=== PATIENT | female | born 1935 | race Caucasian/White ===

== ENCOUNTER 2017-07-30 08:07 | Inpatient (IN) ==
[2017-07-30] MEDS ORDERED: PANTOPRAZOLE 40 MG VIAL IV STA (08:25)
[2017-07-30] MEDS ORDERED: ONDANSETRON 4 MG/2 ML VIAL IV PRN ×2 (08:25→09:40)
[2017-07-30] MEDS ORDERED: SODIUM CHLORIDE 0.9% 1,000 ML IV STA (08:38)
[2017-07-30 08:51] LABS: Basophils # 0.1 10*3/uL (0.0-0.2); Basophils % 0.5 % (0.0-0.8); Eosinophils # 0.1 10*3/uL (0.0-0.87); Eosinophils % 0.6 % (0.00-10.9); Hematocrit 34.3 VOL% (35.7-47.0); Hemoglobin 10.6 GM/DL (12.0-16.0); Immature Granulocytes % 0.9 %; Immature Granulocytes Absolute 0.16 #; Lymphocytes # 1.8 10*3/uL (1.4-4.0); Mean Corpuscular HGB Conc 30.9 GM/DL (32-36); Mean Corpuscular Hemoglobin 24 PG (27-34); Mean Corpuscular Volume 76.4 FL (87-102); Mean Platelet Volume 10.8 FL (9.6-12.0); Monocytes # 1.3 10*3/uL (0.11-0.8); Neutrophils # 14.6 10*3/uL (1.4-7.4); Platelet Count 285 T/CUMM (130-400); Red Blood Count 4.49 MC/CUMM (3.8-5.5); Red Cell Distribution Width 18.6 % (9.3-17.3); White Blood Count 18.1 T/CUMM (4-12)
[2017-07-30] MEDS ORDERED: PANTOPRAZOLE 40 MG VIAL IV ONE (08:51)
[2017-07-30 09:02] LABS: INR 1.1; PT Patient Result 11.1 SECS; Partial Thromboplastin Time 26.6 SECS (0-40)
[2017-07-30 09:21] LABS: Alanine Aminotransferase 21 U/L (13-56); Albumin 2.9 G/DL (3.4-5.0); Alkaline Phosphatase 97 U/L (45-117); Aspartate Amino Transferase 7 U/L (0-37); Bilirubin,Total < 0.39 MG/DL (0.2-1.0); Blood Urea Nitrogen 49 MG/DL (7-18); Calcium 8.8 MG/DL (8.5-10.1); Glucose 146 MG/DL (74-106); Potassium 5.1 MMOL/L (3.5-5.1); Sodium 136 MMOL/L (136-145); Total Protein 7.7 G/DL (6.4-8.3)
[2017-07-30] MEDS ORDERED: guaiFENesin/DM ER 600-30 MG TABLET PO PRN (09:40)
[2017-07-30] MEDS ORDERED: diphenhydrAMINE CAP 25 MG CAPSULE PO PRN (09:40)
[2017-07-30] MEDS ORDERED: ACETAMINOPHEN 325 MG TABLET PO PRN ×2 (09:40)
[2017-07-30 10:04] LABS: Risk Ratio 3.7; VLDL CHOLESTEROL 39.2 MG/DL
[2017-07-30] MEDS: PANTOPRAZOLE 40 MG TABLET PO SCH ×2 (10:12→20:50)
[2017-07-30] MEDS ORDERED: INFLUENZA VIRUS VACCINE 0.5 ML SYRINGE IM ONE (11:25)
[2017-07-30] MEDS: SODIUM CHLORIDE 0.9% 1,000 ML IV SCH ×2 (11:42→19:45)
[2017-07-30 12:31] LABS: Hematocrit 31.1 VOL% (35.7-47.0); Hemoglobin 9.7 GM/DL (12.0-16.0)
[2017-07-30] MEDS ORDERED: GLUCAGON 1 MG VIAL IM PRN (13:57)
[2017-07-30] MEDS ORDERED: DEXTROSE 50% 25 GM/50 ML VIAL IV PRN (13:57)
[2017-07-30] MEDS ORDERED: SODIUM CHLORIDE 0.9% 250 ML IV PRN (13:58)
[2017-07-30] MEDS ORDERED: INSULIN LISPRO 100 UNIT/ML SUBCUT SCH (14:00)
[2017-07-30] MEDS ORDERED: SODIUM CHLORIDE 0.9% 500 ML IV ONE (14:07)
[2017-07-30 16:15] LABS: Hematocrit 33.4 VOL% (35.7-47.0); Hemoglobin 10.1 GM/DL (12.0-16.0)
[2017-07-30] MEDS: INSULIN LISPRO 100 UNIT/ML SUBCUT SCH ×2 (17:04→22:53)
[2017-07-30 22:03] LABS: Hematocrit 26.8 VOL% (35.7-47.0); Hemoglobin 8.6 GM/DL (12.0-16.0)
[2017-07-30 22:16] LABS: Apearance,Urine CLOUDY (Clear); Bacteria,Urine Moderate /HPF (Few); Bilirubin,Urine Negative (Negative); Blood, Urine Large mg/dL (Negative); Glucose,Urine (UA) Negative (Negative); Ketones,Urine Negative (Negative); Nitrite,Urine Negative (Negative); Protein,Urine 30 MG/DL; Squamous Epithelial Cell,Urine Occasional /HPF (0-10); Urine Color Yellow (Yellow); Urine Specific Gravity 1.009 (1.001-1.035); Urine Urobilinogen < 2.0 EU/DL (0.2-1.0); WBC,Urine 698 /HPF (0-6)
[2017-07-31] MEDS: INSULIN LISPRO 100 UNIT/ML SUBCUT SCH ×5 (01:36→21:19)
[2017-07-31] MEDS: SODIUM CHLORIDE 0.9% 1,000 ML IV SCH ×2 (03:27→20:35)
[2017-07-31] MEDS: LEVOTHYROXINE 112 MCG TABLET PO SCH (06:12)
[2017-07-31 07:00] LABS: Basophils # 0.1 10*3/uL (0.0-0.2); Basophils % 0.9 % (0.0-0.8); Eosinophils # 0.2 10*3/uL (0.0-0.87); Eosinophils % 2.3 % (0.00-10.9); Hematocrit 25.8 VOL% (35.7-47.0); Hematocrit 26.2 VOL% (35.7-47.0); Hemoglobin 7.9 GM/DL (12.0-16.0); Immature Granulocytes % 0.6 %; Immature Granulocytes Absolute 0.05 #; Lymphocytes # 1.7 10*3/uL (1.4-4.0); Lymphocytes % 19.7 % (21.3-54.2); Mean Corpuscular HGB Conc 30.6 GM/DL (32-36); Mean Corpuscular Hemoglobin 24 PG (27-34); Mean Corpuscular Volume 77.5 FL (87-102); Mean Platelet Volume 10.3 FL (9.6-12.0); Monocytes # 0.6 10*3/uL (0.11-0.8); Neutrophils # 5.9 10*3/uL (1.4-7.4); Neutrophils % 69.5 % (38.7-73.9); Platelet Count 223 T/CUMM (130-400); Red Blood Count 3.33 MC/CUMM (3.8-5.5); Red Cell Distribution Width 18.7 % (9.3-17.3); White Blood Count 8.5 T/CUMM (4-12)
[2017-07-31 07:37] LABS: Calcium 7.4 MG/DL (8.5-10.1); Osmolality,Calculated 298.8 MOS/KG (273-304); Potassium 4.9 MMOL/L (3.5-5.1)
[2017-07-31] MEDS: PANTOPRAZOLE 40 MG TABLET PO SCH ×2 (08:14→20:40)
[2017-07-31] MEDS: BISACODYL 5 MG TABLET PO SCH ×3 (08:14→21:25)
[2017-07-31] MEDS ORDERED: INSULIN GLARGINE 100 UNIT/ML SUBCUT SCH (09:00)
[2017-07-31] MEDS ORDERED: PANTOPRAZOLE 40 MG TABLET PO SCH (09:00)
[2017-07-31] MEDS: METOPROLOL TARTRATE 25 MG TABLET PO SCH (14:43)
[2017-07-31] MEDS ORDERED: POLYETHYLENE GLYCOL POWDER 255 GM BOTTLE PO ONE (17:00)
[2017-07-31] MEDS ORDERED: POLYETHYLENE GLYCOL 3350/ELECTROLYTES 4,000 ML BOTTLE PO ONE (18:00)
[2017-07-31 20:01] LABS: Hematocrit 32.1 VOL% (35.7-47.0); Hemoglobin 10.1 GM/DL (12.0-16.0)
[2017-07-31] MEDS: DESITIN 4OZ/NYSTATIN 15 GRAM MIXTURE PASTE TOP SCH (20:38)
[2017-07-31] MEDS ORDERED: MAGNESIUM CITRATE 300 ML BOTTLE PO ONE (21:00)
[2017-08-01] MEDS: BISACODYL 5 MG TABLET PO SCH (01:52)
[2017-08-01] MEDS: SODIUM CHLORIDE 0.9% 1,000 ML IV SCH ×3 (04:12→13:12)
[2017-08-01] MEDS: INSULIN LISPRO 100 UNIT/ML SUBCUT SCH ×6 (04:14→21:11)
[2017-08-01 07:06] LABS: Basophils # 0.1 10*3/uL (0.0-0.2); Basophils % 1.2 % (0.0-0.8); Eosinophils # 0.3 10*3/uL (0.0-0.87); Hemoglobin 10.4 GM/DL (12.0-16.0); Immature Granulocytes % 0.6 %; Immature Granulocytes Absolute 0.06 #; Lymphocytes # 1.8 10*3/uL (1.4-4.0); Mean Corpuscular HGB Conc 31.5 GM/DL (32-36); Mean Corpuscular Hemoglobin 25 PG (27-34); Mean Platelet Volume 10.1 FL (9.6-12.0); Monocytes # 0.6 10*3/uL (0.11-0.8); Neutrophils # 6.6 10*3/uL (1.4-7.4); Neutrophils % 70.2 % (38.7-73.9); Platelet Count 239 T/CUMM (130-400); Red Blood Count 4.23 MC/CUMM (3.8-5.5); Red Cell Distribution Width 18.4 % (9.3-17.3); White Blood Count 9.3 T/CUMM (4-12)
[2017-08-01 07:43] LABS: Albumin 2.9 G/DL (3.4-5.0); Bilirubin,Total 0.5 MG/DL (0.2-1.0); Calcium 8.3 MG/DL (8.5-10.1); Osmolality,Calculated 288.8 MOS/KG (273-304); Potassium 4.3 MMOL/L (3.5-5.1); Total Protein 6.6 G/DL (6.4-8.3)
[2017-08-01] MEDS: LEVOTHYROXINE 112 MCG TABLET PO SCH (08:00)
[2017-08-01] MEDS: PANTOPRAZOLE 40 MG TABLET PO SCH ×2 (08:01→20:20)
[2017-08-01] MEDS: METOPROLOL TARTRATE 25 MG TABLET PO SCH ×2 (08:01→23:59)
[2017-08-01] MEDS: INSULIN GLARGINE 100 UNIT/ML SUBCUT SCH (08:01)
[2017-08-01] MEDS: DESITIN 4OZ/NYSTATIN 15 GRAM MIXTURE PASTE TOP SCH ×2 (09:56→20:21)
[2017-08-01] MEDS ORDERED: PROPOFOL 200 MG/20 ML VIAL IV ONE (12:58)
[2017-08-01] MEDS ORDERED: LIDOCAINE 1% 5 ML VIAL ONE (12:58)
[2017-08-01] MEDS ORDERED: PHENOL 1.4% THROAT SPRAY 177 ML BOTTLE PO PRN (15:19)
[2017-08-01 16:43] LABS: Hematocrit 32.6 VOL% (35.7-47.0); Hemoglobin 10.3 GM/DL (12.0-16.0)
[2017-08-01] MEDS ORDERED: METOPROLOL TARTRATE 25 MG TABLET PO ONE (18:01)
[2017-08-01] MEDS ORDERED: GABAPENTIN 300 MG CAPSULE PO SCH (21:30)
[2017-08-02] MEDS: INSULIN LISPRO 100 UNIT/ML SUBCUT SCH ×3 (00:05→09:04)
[2017-08-02] MEDS: SODIUM CHLORIDE 0.9% 1,000 ML IV SCH ×2 (00:07→02:00)
[2017-08-02] MEDS: LEVOTHYROXINE 112 MCG TABLET PO SCH (06:06)
[2017-08-02] MEDS: METOPROLOL TARTRATE 25 MG TABLET PO SCH (06:06)
[2017-08-02] MEDS: INSULIN GLARGINE 100 UNIT/ML SUBCUT SCH (09:05)
[2017-08-02] MEDS: PANTOPRAZOLE 40 MG TABLET PO SCH (09:05)
[2017-08-02] MEDS: DESITIN 4OZ/NYSTATIN 15 GRAM MIXTURE PASTE TOP SCH (09:07)
[2017-08-02] MEDS ORDERED: ATORVASTATIN 80 MG TABLET PO SCH (09:30)
[2017-08-02] MEDS ORDERED: METOPROLOL SUCCINATE XL 25 MG TABLET PO SCH (10:00)
[2017-08-02 12:35] VITALS: BP 150/68
== END 2017-08-02 13:20 | disposition home or self-care (01) | DRG 378 ==
LOC: N.ED 08:07 → N.EDINP 09:40 → N.5E 10:12
PROVIDERS: ADMIT Internal Medicine; ATTEND Internal Medicine

== ENCOUNTER 2017-08-03 13:50 | Inpatient (IN) ==
[2017-08-03] MEDS ORDERED: diphenhydrAMINE CAP 50 MG CAPSULE PO STA (14:08)
[2017-08-03] MEDS ORDERED: diphenhydrAMINE CAP 50 MG CAPSULE ONE (14:37)
[2017-08-03 14:55] LABS: Basophils # 0.1 10*3/uL (0.0-0.2); Basophils % 0.3 % (0.0-0.8); Eosinophils # 0.1 10*3/uL (0.0-0.87); Eosinophils % 0.5 % (0.00-10.9); Hematocrit 36.8 VOL% (35.7-47.0); Hemoglobin 11.7 GM/DL (12.0-16.0); Immature Granulocytes Absolute 0.21 #; Lymphocytes # 1.3 10*3/uL (1.4-4.0); Mean Corpuscular HGB Conc 31.8 GM/DL (32-36); Mean Corpuscular Hemoglobin 25 PG (27-34); Mean Corpuscular Volume 77.8 FL (87-102); Mean Platelet Volume 9.9 FL (9.6-12.0); Monocytes # 0.8 10*3/uL (0.11-0.8); Monocytes % 3.6 % (1.7-12.7); Neutrophils # 19.2 10*3/uL (1.4-7.4); Neutrophils % 88.6 % (38.7-73.9); Platelet Count 286 T/CUMM (130-400); Red Blood Count 4.73 MC/CUMM (3.8-5.5); Red Cell Distribution Width 18.9 % (9.3-17.3); White Blood Count 21.7 T/CUMM (4-12)
[2017-08-03 15:13] LABS: Osmolality,Calculated 281.5 MOS/KG (273-304); Potassium 4.1 MMOL/L (3.5-5.1)
[2017-08-03 15:37] LABS: Apearance,Urine Slightly Hazy (Clear); Bacteria,Urine Many /HPF (Few); Bilirubin,Urine Negative (Negative); Blood, Urine Negative (Negative); Glucose,Urine (UA) Negative (Negative); Hyaline Casts,Urine 5 /LPF (0-3); Ketones,Urine Negative (Negative); Mucus,Urine Occasional /LPF (Occasional); Nitrite,Urine Negative (Negative); Protein,Urine 100 MG/DL; Squamous Epithelial Cell,Urine Occasional /HPF (0-10); Urine Color Yellow (Yellow); Urine Urobilinogen < 2.0 EU/DL (0.2-1.0); WBC,Urine 5 /HPF (0-6)
[2017-08-03 15:51] LABS: Lymphocytes 6 % (20-55); Platelet Estimate Adequate; Segmented Neutrophils 91 % (50-85); Total Cells Counted 100
[2017-08-03 15:52] LABS: Polychromasia Slight
[2017-08-03] MEDS ORDERED: diphenhydrAMINE CAP 25 MG CAPSULE PO PRN (16:20)
[2017-08-03] MEDS ORDERED: ONDANSETRON 4 MG/2 ML VIAL IV PRN (16:20)
[2017-08-03] MEDS ORDERED: GLUCAGON 1 MG VIAL IM PRN (16:20)
[2017-08-03] MEDS ORDERED: ACETAMINOPHEN 325 MG TABLET PO PRN ×2 (16:20)
[2017-08-03] MEDS ORDERED: MORPHINE 2 MG/1 ML SYRINGE IV PRN (16:20)
[2017-08-03] MEDS ORDERED: guaiFENesin/DM ER 600-30 MG TABLET PO PRN (16:20)
[2017-08-03] MEDS ORDERED: DOCUSATE SODIUM 100 MG CAPSULE PO PRN (16:20)
[2017-08-03] MEDS ORDERED: DEXTROSE 50% 25 GM/50 ML VIAL IV PRN (16:20)
[2017-08-03] MEDS ORDERED: NITROGLYCERIN SL 0.4 MG TABLET SL PRN (16:28)
[2017-08-03] MEDS ORDERED: ASPIRIN CHEW 81 MG TABLET PO SCH (16:30)
[2017-08-03] MEDS ORDERED: methylPREDNISolone SOD SUC 40 MG/1 ML VIAL IV SCH (16:30)
[2017-08-03] MEDS ORDERED: PANTOPRAZOLE 40 MG TABLET PO SCH (16:30)
[2017-08-03] MEDS ORDERED: diphenhydrAMINE 50 MG/1 ML VIAL IV SCH (16:30)
[2017-08-03] MEDS ORDERED: diphenhydrAMINE 50 MG/1 ML VIAL IV PRN (16:45)
[2017-08-03] MEDS: INSULIN LISPRO 100 UNIT/ML SUBCUT SCH ×2 (18:39→18:40)
[2017-08-03] MEDS: amLODIPine 5 MG TABLET PO SCH (18:40)
[2017-08-03] MEDS: SODIUM CHLORIDE 0.9% 1,000 ML IV SCH (18:41)
[2017-08-03] MEDS ORDERED: GABAPENTIN 300 MG CAPSULE PO SCH (19:00)
[2017-08-03] MEDS: PANTOPRAZOLE 40 MG TABLET PO SCH (20:48)
[2017-08-03] MEDS: METOPROLOL SUCCINATE XL 25 MG TABLET PO SCH (20:48)
[2017-08-03] MEDS ORDERED: ROSUVASTATIN 20 MG TABLET PO SCH (21:00)
[2017-08-03] MEDS ORDERED: NON-FORMULARY MEDICATION (Duloxetine Hcl [Cymbalta] 60 MG) PO SCH (21:00)
[2017-08-03] MEDS ORDERED: DULoxetine 30 MG CAPSULE PO SCH (21:00)
[2017-08-03] MEDS ORDERED: INSULIN GLARGINE 100 UNIT/ML SUBCUT SCH (21:00)
[2017-08-04 04:43] LABS: Basophils # 0.1 10*3/uL (0.0-0.2); Basophils % 0.9 % (0.0-0.8); Eosinophils # 0.4 10*3/uL (0.0-0.87); Eosinophils % 3.4 % (0.00-10.9); Hematocrit 31.6 VOL% (35.7-47.0); Hemoglobin 9.9 GM/DL (12.0-16.0); Immature Granulocytes % 0.6 %; Immature Granulocytes Absolute 0.07 #; Lymphocytes # 1.8 10*3/uL (1.4-4.0); Lymphocytes % 15.6 % (21.3-54.2); Mean Corpuscular HGB Conc 31.3 GM/DL (32-36); Mean Corpuscular Hemoglobin 24 PG (27-34); Mean Platelet Volume 10.2 FL (9.6-12.0); Monocytes # 0.7 10*3/uL (0.11-0.8); Monocytes % 5.7 % (1.7-12.7); Neutrophils # 8.6 10*3/uL (1.4-7.4); Neutrophils % 73.8 % (38.7-73.9); Platelet Count 261 T/CUMM (130-400); Red Blood Count 4.05 MC/CUMM (3.8-5.5); Red Cell Distribution Width 18.7 % (9.3-17.3); White Blood Count 11.7 T/CUMM (4-12)
[2017-08-04 05:33] LABS: Calcium 8.3 MG/DL (8.5-10.1); Osmolality,Calculated 284.3 MOS/KG (273-304); Potassium 4.3 MMOL/L (3.5-5.1)
[2017-08-04] MEDS: SODIUM CHLORIDE 0.9% 1,000 ML IV SCH (05:38)
[2017-08-04] MEDS ORDERED: LEVOTHYROXINE 112 MCG TABLET PO SCH (07:00)
[2017-08-04] MEDS: INSULIN LISPRO 100 UNIT/ML SUBCUT SCH ×2 (08:45→08:46)
[2017-08-04] MEDS ORDERED: DULoxetine 30 MG CAPSULE PO SCH (09:00)
[2017-08-04] MEDS ORDERED: INSULIN GLARGINE 100 UNIT/ML SUBCUT SCH (09:00)
[2017-08-04] MEDS ORDERED: ISOSORBIDE MONONITRATE 30 MG TABLET PO SCH (09:00)
[2017-08-04 09:02] VITALS: BP 142/82
[2017-08-04] MEDS: amLODIPine 5 MG TABLET PO SCH (09:22)
[2017-08-04] MEDS: PANTOPRAZOLE 40 MG TABLET PO SCH (09:22)
[2017-08-04] MEDS: METOPROLOL SUCCINATE XL 25 MG TABLET PO SCH (09:23)
[2017-08-04] MEDS ORDERED: INFLUENZA VIRUS VACCINE 0.5 ML SYRINGE IM ONE (10:00)
== END 2017-08-04 10:37 | disposition home or self-care (01) | DRG 916 ==
LOC: EDUNIT# → EDBD → N.ED 13:50 → N.EDINP 15:48 → N.CC 17:15
PROVIDERS: ADMIT Internal Medicine; ATTEND Internal Medicine

== ENCOUNTER 2018-03-13 19:55 | Inpatient (IN) ==
[2018-03-13 21:00] LABS: Basophils # 0.1 10*3/uL (0.0-0.2); Basophils % 1.4 % (0.0-0.8); Eosinophils # 0.4 10*3/uL (0.0-0.87); Eosinophils % 4.2 % (0.00-10.9); Hematocrit 37.8 VOL% (35.7-47.0); Hemoglobin 11.7 GM/DL (12.0-16.0); Immature Granulocytes % 0.5 %; Immature Granulocytes Absolute 0.05 #; Lymphocytes # 1.8 10*3/uL (1.4-4.0); Lymphocytes % 18.9 % (21.3-54.2); Mean Corpuscular Hemoglobin 23 PG (27-34); Mean Corpuscular Volume 75.3 FL (87-102); Mean Platelet Volume 10.6 FL (9.6-12.0); Monocytes # 0.8 10*3/uL (0.11-0.8); Monocytes % 8.3 % (1.7-12.7); Neutrophils # 6.5 10*3/uL (1.4-7.4); Neutrophils % 66.7 % (38.7-73.9); Platelet Count 241 T/CUMM (130-400); Red Blood Count 5.02 MC/CUMM (3.8-5.5); Red Cell Distribution Width 17.1 % (9.3-17.3); White Blood Count 9.8 T/CUMM (4-12)
[2018-03-13 21:08] LABS: Partial Thromboplastin Time 27.2 SECS (0-40)
[2018-03-13 21:14] LABS: Albumin 3.7 G/DL (3.4-5.0); Bilirubin,Total 0.4 MG/DL (0.2-1.0); Calcium 8.6 MG/DL (8.5-10.1); Osmolality,Calculated 289.5 MOS/KG (273-304); Potassium 4.2 MMOL/L (3.5-5.1); Total Protein 8.1 G/DL (6.4-8.3)
[2018-03-13] MEDS ORDERED: ONDANSETRON 4 MG/2 ML VIAL ONE (22:00)
[2018-03-13] MEDS ORDERED: MEPERIDINE 25 MG/1 ML VIAL ONE (22:01)
[2018-03-13] MEDS ORDERED: MEPERIDINE 25 MG/1 ML VIAL IV STA (22:03)
[2018-03-13] MEDS ORDERED: ONDANSETRON 4 MG/2 ML VIAL IV STA (22:03)
[2018-03-13] MEDS ORDERED: GLUCAGON 1 MG VIAL IM PRN (23:14)
[2018-03-13] MEDS ORDERED: DEXTROSE 50% 25 GM/50 ML VIAL IV PRN (23:14)
[2018-03-13] MEDS ORDERED: ONDANSETRON 4 MG/2 ML VIAL IV PRN (23:14)
[2018-03-14] MEDS: SODIUM CHLORIDE 0.9% 1,000 ML IV SCH ×2 (01:15→13:51)
[2018-03-14] MEDS: MEPERIDINE 25 MG/1 ML VIAL IV PRN ×2 (02:22→10:02)
[2018-03-14] MEDS ORDERED: LEVOTHYROXINE 200 MCG TABLET PO SCH (06:30)
[2018-03-14] MEDS ORDERED: amLODIPine 5 MG TABLET PO SCH ×2 (09:00→09:30)
[2018-03-14] MEDS ORDERED: ISOSORBIDE MONONITRATE 30 MG TABLET PO SCH ×2 (09:00→09:30)
[2018-03-14] MEDS ORDERED: NITROGLYCERIN SL 0.4 MG TABLET SL PRN (09:16)
[2018-03-14] MEDS ORDERED: METOPROLOL SUCCINATE XL 25 MG TABLET PO SCH (09:30)
[2018-03-14] MEDS ORDERED: INSULIN GLARGINE 100 UNIT/ML SUBCUT SCH ×2 (09:30→21:00)
[2018-03-14] MEDS ORDERED: PANTOPRAZOLE 40 MG TABLET PO SCH (09:30)
[2018-03-14] MEDS ORDERED: GABAPENTIN 300 MG CAPSULE PO SCH (09:30)
[2018-03-14] MEDS ORDERED: OXYMETAZOLINE 0.05% NASAL SPRAY 15 ML BOTTLE BOTH NARES STA (09:57)
[2018-03-14] MEDS: INSULIN REGULAR 100 UNIT/ML SUBCUT SCH ×2 (10:16→13:50)
[2018-03-14 11:20] VITALS: BP 166/73
[2018-03-14] MEDS ORDERED: INSULIN LISPRO 100 UNIT/ML SUBCUT SCH (11:30)
[2018-03-14] MEDS ORDERED: MUPIROCIN 2% OINT 22 GM TUBE TOP PRN (13:00)
[2018-03-14] MEDS ORDERED: ERTAPENEM 1,000 MG in SODIUM CHLORIDE 0.9% 100 ML IV ONE (14:00)
[2018-03-14] MEDS ORDERED: ROSUVASTATIN 20 MG TABLET PO SCH ×2 (21:00)
[2018-03-14] MEDS ORDERED: DULoxetine 30 MG CAPSULE PO SCH ×2 (21:00)
[2018-03-15] MEDS ORDERED: LEVOTHYROXINE 112 MCG TABLET PO SCH (07:00)
== END 2018-03-14 14:49 | disposition home or self-care (01) | DRG 155 ==
LOC: EDUNIT# → EDBD → N.ED 19:55 → N.EDINP 23:13 → N.3E 23:40
PROVIDERS: ADMIT Otolaryngology; ATTEND Otolaryngology

== ENCOUNTER 2018-03-21 11:59 | Inpatient (IN) ==
[2018-03-21 13:08] LABS: Basophils # 0.1 10*3/uL (0.0-0.2); Basophils % 0.7 % (0.0-0.8); Eosinophils # 0.4 10*3/uL (0.0-0.87); Hematocrit 27.6 VOL% (35.7-47.0); Hemoglobin 8.3 GM/DL (12.0-16.0); Immature Granulocytes % 0.5 %; Immature Granulocytes Absolute 0.06 #; Lymphocytes # 1.5 10*3/uL (1.4-4.0); Lymphocytes % 12.4 % (21.3-54.2); Mean Corpuscular HGB Conc 30.1 GM/DL (32-36); Mean Corpuscular Hemoglobin 23 PG (27-34); Mean Corpuscular Volume 76.2 FL (87-102); Mean Platelet Volume 10.4 FL (9.6-12.0); Monocytes # 1.4 10*3/uL (0.11-0.8); Monocytes % 11.2 % (1.7-12.7); NRBC # 0.04 10*3/uL; Neutrophils # 8.9 10*3/uL (1.4-7.4); Neutrophils % 72.2 % (38.7-73.9); Platelet Count 226 T/CUMM (130-400); Red Blood Count 3.62 MC/CUMM (3.8-5.5); Red Cell Distribution Width 17.2 % (9.3-17.3); White Blood Count 12.3 T/CUMM (4-12)
[2018-03-21 13:18] LABS: INR 1.1; PT Patient Result 11.3 SECS; Partial Thromboplastin Time 26.4 SECS (0-40)
[2018-03-21 13:27] LABS: ABG HCO3 24.3 MMOL/L (20-26); ABG Oxygen Saturation 85.2 % (95-100); ABG PCO2 38.4 MM HG (35-48); ABG PH 7.413 (7.35-7.45); ABG PO2 52.6 MM HG (80-95); ABG TCO2 22.8 MMOL/L (23-27)
[2018-03-21 13:27] LABS: Albumin 3.1 G/DL (3.4-5.0); Bilirubin,Total 0.4 MG/DL (0.2-1.0); Calcium 8.1 MG/DL (8.5-10.1); Osmolality,Calculated 294.1 MOS/KG (273-304); Potassium 4.5 MMOL/L (3.5-5.1); Total Protein 7.2 G/DL (6.4-8.3)
[2018-03-21] MEDS ORDERED: FUROSEMIDE 40 MG/4 ML VIAL IV STA (13:56)
[2018-03-21] MEDS ORDERED: ALBUTEROL/IPRATROPIUM 3 ML NEB RESP TX STA (13:56)
[2018-03-21 14:10] LABS: Apearance,Urine CLOUDY (Clear); Bilirubin,Urine Negative (Negative); Blood, Urine Small mg/dL (Negative); Glucose,Urine (UA) Negative (Negative); Ketones,Urine Negative (Negative); Mucus,Urine Occasional /LPF (Occasional); Nitrite,Urine Negative (Negative); Protein,Urine 30 MG/DL; RBC,Urine 22 /HPF (0-4); Squamous Epithelial Cell,Urine Many /HPF (0-10); Urine Color Yellow (Yellow); Urine Specific Gravity 1.012 (1.001-1.035); Urine Urobilinogen < 2.0 EU/DL (0.2-1.0); WBC,Urine 75 /HPF (0-6)
[2018-03-21] MEDS ORDERED: DOXYCYCLINE HYCLATE INJ 100 MG in SODIUM CHLORIDE 0.9% 100 ML IV STA (14:18)
[2018-03-21] MEDS ORDERED: ACETAMINOPHEN 325 MG TABLET PO PRN (16:51)
[2018-03-21] MEDS ORDERED: ONDANSETRON 4 MG/2 ML VIAL IV PRN (16:51)
[2018-03-21] MEDS ORDERED: NITROGLYCERIN SL 0.4 MG TABLET SL PRN (16:53)
[2018-03-21] MEDS ORDERED: cefTRIAXone 1,000 MG in SYRINGE 1 EACH IV SCH ×2 (18:00→21:00)
[2018-03-21] MEDS: METOPROLOL TARTRATE 25 MG TABLET PO SCH (20:57)
[2018-03-21] MEDS: ROSUVASTATIN 20 MG TABLET PO SCH (20:57)
[2018-03-21] MEDS: GABAPENTIN 300 MG CAPSULE PO SCH (20:57)
[2018-03-21] MEDS: PANTOPRAZOLE 40 MG TABLET PO SCH (20:57)
[2018-03-21] MEDS: MEROPENEM 500 MG in SYRINGE 1 EACH IV SCH (21:02)
[2018-03-21] MEDS: MUPIROCIN 2% OINT 22 GM TUBE TOP SCH (21:03)
[2018-03-22] MEDS: LEVOTHYROXINE 112 MCG TABLET PO SCH (06:15)
[2018-03-22] MEDS: MEROPENEM 500 MG in SYRINGE 1 EACH IV SCH ×2 (08:34→20:40)
[2018-03-22] MEDS: METOPROLOL TARTRATE 25 MG TABLET PO SCH ×2 (08:37→20:42)
[2018-03-22] MEDS: GABAPENTIN 300 MG CAPSULE PO SCH ×2 (08:37→20:41)
[2018-03-22] MEDS: amLODIPine 5 MG TABLET PO SCH (08:37)
[2018-03-22] MEDS: PANTOPRAZOLE 40 MG TABLET PO SCH ×2 (08:37→20:41)
[2018-03-22] MEDS: ISOSORBIDE MONONITRATE 30 MG TABLET PO SCH (08:37)
[2018-03-22] MEDS: MUPIROCIN 2% OINT 22 GM TUBE TOP SCH ×3 (08:38→20:43)
[2018-03-22 08:55] LABS: Basophils # 0.1 10*3/uL (0.0-0.2); Basophils % 0.6 % (0.0-0.8); Eosinophils # 0.3 10*3/uL (0.0-0.87); Eosinophils % 2.1 % (0.00-10.9); Hematocrit 27.7 VOL% (35.7-47.0); Hemoglobin 8.2 GM/DL (12.0-16.0); Immature Granulocytes % 0.6 %; Immature Granulocytes Absolute 0.08 #; Lymphocytes # 1.3 10*3/uL (1.4-4.0); Lymphocytes % 9.9 % (21.3-54.2); Mean Corpuscular HGB Conc 29.6 GM/DL (32-36); Mean Corpuscular Hemoglobin 23 PG (27-34); Mean Corpuscular Volume 76.9 FL (87-102); Mean Platelet Volume 11.4 FL (9.6-12.0); Monocytes # 1.3 10*3/uL (0.11-0.8); Monocytes % 9.9 % (1.7-12.7); NRBC # 0.02 10*3/uL; Neutrophils # 10.4 10*3/uL (1.4-7.4); Neutrophils % 76.9 % (38.7-73.9); Platelet Count 241 T/CUMM (130-400); Red Cell Distribution Width 17.2 % (9.3-17.3); White Blood Count 13.5 T/CUMM (4-12)
[2018-03-22] MEDS ORDERED: PANTOPRAZOLE 40 MG TABLET PO SCH (09:00)
[2018-03-22 09:24] LABS: Osmolality,Calculated 299.1 MOS/KG (273-304); Potassium 4.6 MMOL/L (3.5-5.1)
[2018-03-22 09:31] LABS: % Iron Saturation 5.3 % (18-50); Ferritin 19.2 ng/ml (8-252)
[2018-03-22 09:34] LABS: Free T4 (Free Thyroxine) 1.89 NG/DL (0.76-1.46); Thyroid Stimulating Hormone 0.009 uIU/ml (0.358-3.74)
[2018-03-22 09:53] LABS: Folate 14.9 NG/ML (5.4-24.0); Vitamin B12 392 PG/ML (211-911)
[2018-03-22] MEDS ORDERED: ALBUTEROL/IPRATROPIUM 3 ML NEB RESP TX PRN (14:26)
[2018-03-22] MEDS: FUROSEMIDE 40 MG/4 ML VIAL IV SCH ×2 (15:18→16:05)
[2018-03-22] MEDS ORDERED: ALBUTEROL/IPRATROPIUM 3 ML NEB RESP TX SCH (16:00)
[2018-03-22] MEDS: ASPIRIN CHEW 81 MG TABLET PO SCH (16:48)
[2018-03-22] MEDS: ALBUTEROL/IPRATROPIUM 3 ML NEB RESP TX SCH (19:31)
[2018-03-22] MEDS: ROSUVASTATIN 20 MG TABLET PO SCH (20:41)
[2018-03-22] MEDS: FERROUS GLUCONATE 324 MG TABLET PO SCH (20:41)
[2018-03-22] MEDS: traZODone 50 MG TABLET PO PRN (20:45)
[2018-03-23] MEDS: ALBUTEROL/IPRATROPIUM 3 ML NEB RESP TX SCH ×7 (00:12→23:21)
[2018-03-23 06:28] LABS: Basophils # 0.1 10*3/uL (0.0-0.2); Basophils % 0.6 % (0.0-0.8); Eosinophils # 0.2 10*3/uL (0.0-0.87); Eosinophils % 1.8 % (0.00-10.9); Hematocrit 27.1 VOL% (35.7-47.0); Hemoglobin 7.8 GM/DL (12.0-16.0); Immature Granulocytes % 0.6 %; Immature Granulocytes Absolute 0.07 #; Lymphocytes # 1.3 10*3/uL (1.4-4.0); Lymphocytes % 11.9 % (21.3-54.2); Mean Corpuscular HGB Conc 28.8 GM/DL (32-36); Mean Corpuscular Hemoglobin 23 PG (27-34); Mean Corpuscular Volume 79.2 FL (87-102); Mean Platelet Volume 11.4 FL (9.6-12.0); Monocytes # 1.1 10*3/uL (0.11-0.8); NRBC # 0.03 10*3/uL; Neutrophils # 8.1 10*3/uL (1.4-7.4); Neutrophils % 75.1 % (38.7-73.9); Platelet Count 211 T/CUMM (130-400); Red Blood Count 3.42 MC/CUMM (3.8-5.5); Red Cell Distribution Width 17.3 % (9.3-17.3); White Blood Count 10.9 T/CUMM (4-12)
[2018-03-23 07:02] LABS: Calcium 7.8 MG/DL (8.5-10.1); Osmolality,Calculated 294.4 MOS/KG (273-304)
[2018-03-23] MEDS: PANTOPRAZOLE 40 MG TABLET PO SCH ×2 (08:49→22:07)
[2018-03-23] MEDS: GABAPENTIN 300 MG CAPSULE PO SCH ×2 (08:49→22:07)
[2018-03-23] MEDS: LEVOTHYROXINE 112 MCG TABLET PO SCH (08:49)
[2018-03-23] MEDS: ISOSORBIDE MONONITRATE 30 MG TABLET PO SCH (08:49)
[2018-03-23] MEDS: FERROUS GLUCONATE 324 MG TABLET PO SCH ×2 (08:49→22:07)
[2018-03-23] MEDS: METOPROLOL TARTRATE 25 MG TABLET PO SCH ×2 (08:49→23:51)
[2018-03-23] MEDS: MUPIROCIN 2% OINT 22 GM TUBE TOP SCH ×3 (08:49→22:08)
[2018-03-23] MEDS: amLODIPine 5 MG TABLET PO SCH (08:49)
[2018-03-23] MEDS: FUROSEMIDE 40 MG/4 ML VIAL IV SCH ×2 (08:50→15:51)
[2018-03-23] MEDS: MEROPENEM 500 MG in SYRINGE 1 EACH IV SCH ×2 (08:50→22:08)
[2018-03-23] MEDS ORDERED: GLUCAGON 1 MG VIAL IM PRN (13:28)
[2018-03-23] MEDS ORDERED: DEXTROSE 50% 25 GM/50 ML VIAL IV PRN (13:28)
[2018-03-23] MEDS: INSULIN LISPRO 100 UNIT/ML SUBCUT SCH (16:54)
[2018-03-23] MEDS: traZODone 50 MG TABLET PO PRN (22:07)
[2018-03-23] MEDS: ROSUVASTATIN 20 MG TABLET PO SCH (22:07)
[2018-03-24] MEDS: INSULIN LISPRO 100 UNIT/ML SUBCUT SCH ×5 (00:30→22:33)
[2018-03-24] MEDS: ALBUTEROL/IPRATROPIUM 3 ML NEB RESP TX SCH ×6 (02:40→23:57)
[2018-03-24] MEDS: LEVOTHYROXINE 112 MCG TABLET PO SCH (07:18)
[2018-03-24] MEDS: MEROPENEM 500 MG in SYRINGE 1 EACH IV SCH ×2 (08:30→22:31)
[2018-03-24] MEDS: MUPIROCIN 2% OINT 22 GM TUBE TOP SCH ×3 (08:30→22:35)
[2018-03-24] MEDS: amLODIPine 5 MG TABLET PO SCH (08:30)
[2018-03-24] MEDS: METOPROLOL TARTRATE 25 MG TABLET PO SCH ×2 (08:30→22:39)
[2018-03-24] MEDS: ISOSORBIDE MONONITRATE 30 MG TABLET PO SCH (08:30)
[2018-03-24] MEDS: GABAPENTIN 300 MG CAPSULE PO SCH ×2 (08:30→22:33)
[2018-03-24] MEDS: PANTOPRAZOLE 40 MG TABLET PO SCH ×2 (08:30→22:33)
[2018-03-24] MEDS: FERROUS GLUCONATE 324 MG TABLET PO SCH ×2 (08:30→22:33)
[2018-03-24] MEDS: FUROSEMIDE 40 MG/4 ML VIAL IV SCH (08:42)
[2018-03-24] MEDS: FUROSEMIDE 20 MG TABLET PO SCH (15:28)
[2018-03-24] MEDS: traZODone 50 MG TABLET PO PRN (22:33)
[2018-03-24] MEDS: ROSUVASTATIN 20 MG TABLET PO SCH (22:33)
[2018-03-24] MEDS: INSULIN GLARGINE 100 UNIT/ML SUBCUT SCH (22:34)
[2018-03-24] MEDS: DULoxetine 30 MG CAPSULE PO SCH (22:34)
[2018-03-25] MEDS: ALBUTEROL/IPRATROPIUM 3 ML NEB RESP TX SCH ×6 (03:09→23:05)
[2018-03-25 06:35] LABS: Basophils # 0.1 10*3/uL (0.0-0.2); Basophils % 0.5 % (0.0-0.8); Eosinophils # 0.3 10*3/uL (0.0-0.87); Eosinophils % 2.6 % (0.00-10.9); Hematocrit 25.8 VOL% (35.7-47.0); Hemoglobin 8.2 GM/DL (12.0-16.0); Immature Granulocytes % 0.5 %; Immature Granulocytes Absolute 0.06 #; Lymphocytes # 1.2 10*3/uL (1.4-4.0); Lymphocytes % 10.6 % (21.3-54.2); Mean Corpuscular HGB Conc 31.8 GM/DL (32-36); Mean Corpuscular Hemoglobin 23 PG (27-34); Mean Corpuscular Volume 72.9 FL (87-102); Mean Platelet Volume 10.6 FL (9.6-12.0); Monocytes # 1.2 10*3/uL (0.11-0.8); Monocytes % 10.6 % (1.7-12.7); Neutrophils # 8.3 10*3/uL (1.4-7.4); Neutrophils % 75.2 % (38.7-73.9); Platelet Count 231 T/CUMM (130-400); Red Blood Count 3.54 MC/CUMM (3.8-5.5); Red Cell Distribution Width 17.1 % (9.3-17.3); White Blood Count 11.1 T/CUMM (4-12)
[2018-03-25 07:05] LABS: Calcium 7.9 MG/DL (8.5-10.1); Osmolality,Calculated 297.3 MOS/KG (273-304); Potassium 3.8 MMOL/L (3.5-5.1)
[2018-03-25] MEDS ORDERED: AZTREONAM 1,000 MG in SYRINGE 1 EACH IV ONE (07:30)
[2018-03-25] MEDS: PANTOPRAZOLE 40 MG TABLET PO SCH ×2 (09:11→21:05)
[2018-03-25] MEDS: amLODIPine 5 MG TABLET PO SCH (09:11)
[2018-03-25] MEDS: FERROUS GLUCONATE 324 MG TABLET PO SCH ×2 (09:11→21:05)
[2018-03-25] MEDS: FUROSEMIDE 20 MG TABLET PO SCH ×2 (09:11→16:38)
[2018-03-25] MEDS: GABAPENTIN 300 MG CAPSULE PO SCH ×2 (09:11→21:06)
[2018-03-25] MEDS: METOPROLOL TARTRATE 25 MG TABLET PO SCH ×2 (09:11→21:06)
[2018-03-25] MEDS: MUPIROCIN 2% OINT 22 GM TUBE TOP SCH ×3 (09:12→21:03)
[2018-03-25] MEDS: ISOSORBIDE MONONITRATE 30 MG TABLET PO SCH (09:12)
[2018-03-25] MEDS: INSULIN LISPRO 100 UNIT/ML SUBCUT SCH ×4 (09:12→21:03)
[2018-03-25] MEDS: LEVOTHYROXINE 112 MCG TABLET PO SCH (09:14)
[2018-03-25] MEDS ORDERED: LACTULOSE 20 GM/30 ML UDCUP PO PRN (09:59)
[2018-03-25 11:44] LABS: Amorphous Crystals,Urine Occasional /HPF (Few); Apearance,Urine Slightly Hazy (Clear); Bacteria,Urine Occasional /HPF (Few); Bilirubin,Urine Negative (Negative); Blood, Urine Moderate mg/dL (Negative); Glucose,Urine (UA) 50 mg/dL (Negative); Hyaline Casts,Urine 5 /LPF (0-3); Ketones,Urine Negative (Negative); Mucus,Urine Occasional /LPF (Occasional); Nitrite,Urine Negative (Negative); Protein,Urine 100 MG/DL; RBC,Urine 37 /HPF (0-4); Squamous Epithelial Cell,Urine Occasional /HPF (0-10); Urine Color Yellow (Yellow); Urine Specific Gravity 1.013 (1.001-1.035); Urine Urobilinogen < 2.0 EU/DL (0.2-1.0); WBC,Urine 19 /HPF (0-6)
[2018-03-25] MEDS: ASPIRIN CHEW 81 MG TABLET PO SCH (16:38)
[2018-03-25] MEDS: AZTREONAM 500 MG in SYRINGE 1 EACH IV SCH (20:49)
[2018-03-25] MEDS ORDERED: AZTREONAM 500 MG in SYRINGE 1 EACH IV SCH (21:00)
[2018-03-25] MEDS: INSULIN GLARGINE 100 UNIT/ML SUBCUT SCH (21:04)
[2018-03-25] MEDS: ROSUVASTATIN 20 MG TABLET PO SCH (21:05)
[2018-03-25] MEDS: DULoxetine 30 MG CAPSULE PO SCH (21:05)
[2018-03-26] MEDS: ALBUTEROL/IPRATROPIUM 3 ML NEB RESP TX SCH ×3 (03:01→14:30)
[2018-03-26 06:30] LABS: Basophils # 0.1 10*3/uL (0.0-0.2); Basophils % 0.6 % (0.0-0.8); Eosinophils # 0.3 10*3/uL (0.0-0.87); Eosinophils % 3.5 % (0.00-10.9); Hematocrit 25.7 VOL% (35.7-47.0); Hemoglobin 7.7 GM/DL (12.0-16.0); Immature Granulocytes % 0.7 %; Immature Granulocytes Absolute 0.07 #; Lymphocytes # 1.3 10*3/uL (1.4-4.0); Lymphocytes % 13.6 % (21.3-54.2); Mean Corpuscular Hemoglobin 23 PG (27-34); Mean Corpuscular Volume 75.1 FL (87-102); Mean Platelet Volume 10.6 FL (9.6-12.0); Monocytes # 0.9 10*3/uL (0.11-0.8); Monocytes % 9.4 % (1.7-12.7); Neutrophils # 6.8 10*3/uL (1.4-7.4); Neutrophils % 72.2 % (38.7-73.9); Platelet Count 230 T/CUMM (130-400); Red Blood Count 3.42 MC/CUMM (3.8-5.5); Red Cell Distribution Width 17.2 % (9.3-17.3); White Blood Count 9.4 T/CUMM (4-12)
[2018-03-26 06:52] LABS: Calcium 7.9 MG/DL (8.5-10.1); Osmolality,Calculated 299.4 MOS/KG (273-304); Potassium 3.5 MMOL/L (3.5-5.1)
[2018-03-26] MEDS: LEVOTHYROXINE 112 MCG TABLET PO SCH (07:28)
[2018-03-26] MEDS: amLODIPine 5 MG TABLET PO SCH (08:32)
[2018-03-26] MEDS: FUROSEMIDE 20 MG TABLET PO SCH (08:32)
[2018-03-26] MEDS: GABAPENTIN 300 MG CAPSULE PO SCH (08:32)
[2018-03-26] MEDS: METOPROLOL TARTRATE 25 MG TABLET PO SCH (08:32)
[2018-03-26] MEDS: FERROUS GLUCONATE 324 MG TABLET PO SCH (08:32)
[2018-03-26] MEDS: PANTOPRAZOLE 40 MG TABLET PO SCH (08:32)
[2018-03-26] MEDS: ISOSORBIDE MONONITRATE 30 MG TABLET PO SCH (08:32)
[2018-03-26] MEDS: MUPIROCIN 2% OINT 22 GM TUBE TOP SCH (08:33)
[2018-03-26] MEDS: INSULIN LISPRO 100 UNIT/ML SUBCUT SCH ×2 (08:33→11:50)
[2018-03-26] MEDS: AZTREONAM 500 MG in SYRINGE 1 EACH IV SCH (08:36)
[2018-03-26 15:52] VITALS: BP 111/57
== END 2018-03-26 16:07 | disposition swing bed (61) | DRG 690 ==
LOC: N.ED 11:59 → N.EDINP 16:50 → SUATTDRO 16:50 → N.2E 17:33
PROVIDERS: ADMIT Internal Medicine; ATTEND Internal Medicine Infectious Disease

== ENCOUNTER 2019-04-27 04:02 | Inpatient (IN) ==
[2019-04-27 05:07] LABS: Basophils # 0.1 10*3/uL (0.0-0.2); Basophils % 0.4 % (0.0-0.8); Eosinophils % 0.2 % (0.00-10.9); Hematocrit 47.2 VOL% (35.7-47.0); Hemoglobin 14.6 GM/DL (12.0-16.0); Immature Granulocytes % 0.8 %; Immature Granulocytes Absolute 0.13 #; Lymphocytes # 1.3 10*3/uL (1.4-4.0); Lymphocytes % 7.7 % (21.3-54.2); Mean Corpuscular HGB Conc 30.9 GM/DL (32-36); Mean Corpuscular Volume 86.4 FL (87-102); Mean Platelet Volume 10.4 FL (9.6-12.0); Monocytes % 6.5 % (1.7-12.7); Neutrophils % 84.4 % (38.7-73.9); Platelet Count 168 T/CUMM (130-400); Red Blood Count 5.46 MC/CUMM (3.8-5.5); Red Cell Distribution Width 14.6 % (9.3-17.3); White Blood Count 16.5 T/CUMM (4-12)
[2019-04-27 05:21] LABS: Apearance,Urine CLOUDY (Clear); Bacteria,Urine Many /HPF (Few); Bilirubin,Urine Negative (Negative); Blood, Urine Small mg/dL (Negative); Glucose,Urine (UA) Negative (Negative); Ketones,Urine Negative (Negative); Mucus,Urine Occasional /LPF (Occasional); Nitrite,Urine Negative (Negative); Protein,Urine 100 MG/DL; RBC,Urine 4 /HPF (0-4); Squamous Epithelial Cell,Urine Occasional /HPF (0-10); Urine Color Yellow (Yellow); Urine Urobilinogen < 2.0 EU/DL (0.2-1.0); WBC,Urine 71 /HPF (0-6)
[2019-04-27] MEDS ORDERED: CLINDAMYCIN INJ 600 MG in PREMIX 1 EACH IV STA (05:25)
[2019-04-27 05:43] LABS: Bilirubin,Total 0.5 MG/DL (0.2-1.0); Calcium 9.5 MG/DL (8.5-10.1); Osmolality,Calculated 295.8 MOS/KG (273-304); Total Protein 8.4 G/DL (6.4-8.3)
[2019-04-27] MEDS ORDERED: AZTREONAM 1,000 MG in SODIUM CHLORIDE 0.9% 100 ML IV STA (06:59)
[2019-04-27] MEDS ORDERED: AZTREONAM 1,000 MG in SYRINGE 1 EACH IV STA (07:04)
[2019-04-27] MEDS ORDERED: ONDANSETRON 4 MG/2 ML VIAL IV PRN (07:50)
[2019-04-27] MEDS ORDERED: DEXTROSE 50% 25 GM/50 ML VIAL IV PRN (08:06)
[2019-04-27] MEDS ORDERED: GLUCAGON 1 MG VIAL IM PRN (08:06)
[2019-04-27] MEDS: SODIUM CHLORIDE 0.9% 1,000 ML IV SCH (08:59)
[2019-04-27] MEDS ORDERED: PANTOPRAZOLE 40 MG VIAL IV SCH (09:00)
[2019-04-27] MEDS ORDERED: PANTOPRAZOLE 40 MG TABLET PO SCH (09:00)
[2019-04-27] MEDS: metroNIDAZOLE INJ 500 MG in PREMIX 1 EACH IV SCH ×2 (10:33→18:06)
[2019-04-27] MEDS: AZTREONAM 1,000 MG in SYRINGE 1 EACH IV SCH ×2 (10:34→18:07)
[2019-04-27] MEDS: INSULIN REGULAR 100 UNIT/ML SUBCUT SCH ×2 (12:43→18:05)
[2019-04-27] MEDS: DULoxetine 30 MG CAPSULE PO SCH (21:13)
[2019-04-27] MEDS: METOPROLOL TARTRATE 25 MG TABLET PO SCH (21:14)
[2019-04-27] MEDS: PANTOPRAZOLE 40 MG VIAL IV SCH (21:14)
[2019-04-28] MEDS: metroNIDAZOLE INJ 500 MG in PREMIX 1 EACH IV SCH ×2 (00:56→08:38)
[2019-04-28] MEDS: AZTREONAM 1,000 MG in SYRINGE 1 EACH IV SCH ×3 (00:56→16:47)
[2019-04-28] MEDS: INSULIN REGULAR 100 UNIT/ML SUBCUT SCH ×4 (00:57→17:20)
[2019-04-28 05:17] LABS: Basophils # 0.1 10*3/uL (0.0-0.2); Basophils % 0.6 % (0.0-0.8); Eosinophils # 0.2 10*3/uL (0.0-0.87); Eosinophils % 2.1 % (0.00-10.9); Hematocrit 42.6 VOL% (35.7-47.0); Hemoglobin 13.3 GM/DL (12.0-16.0); Immature Granulocytes % 0.5 %; Immature Granulocytes Absolute 0.05 #; Lymphocytes # 1.3 10*3/uL (1.4-4.0); Lymphocytes % 12.3 % (21.3-54.2); Mean Corpuscular HGB Conc 31.2 GM/DL (32-36); Mean Corpuscular Volume 87.7 FL (87-102); Mean Platelet Volume 11.2 FL (9.6-12.0); Monocytes % 7.5 % (1.7-12.7); Platelet Count 140 T/CUMM (130-400); Red Blood Count 4.86 MC/CUMM (3.8-5.5); Red Cell Distribution Width 14.7 % (9.3-17.3); White Blood Count 10.8 T/CUMM (4-12)
[2019-04-28 05:51] LABS: Calcium 8.2 MG/DL (8.5-10.1); Risk Ratio 3.12; Thyroid Stimulating Hormone 1.69 uIU/ml (0.358-3.74); VLDL CHOLESTEROL 39.8 MG/DL
[2019-04-28] MEDS: SODIUM CHLORIDE 0.9% 1,000 ML IV SCH (06:57)
[2019-04-28] MEDS: DULoxetine 30 MG CAPSULE PO SCH ×2 (08:24→21:27)
[2019-04-28] MEDS: METOPROLOL TARTRATE 25 MG TABLET PO SCH ×2 (08:24→21:27)
[2019-04-28] MEDS: PANTOPRAZOLE 40 MG VIAL IV SCH (08:25)
[2019-04-28] MEDS ORDERED: LEVOTHYROXINE 150 MCG TABLET PO SCH (09:00)
[2019-04-28] MEDS ORDERED: NITROGLYCERIN SL 0.4 MG TABLET SL PRN (12:28)
[2019-04-28] MEDS: GLIMEPIRIDE 4 MG TABLET PO SCH ×2 (14:09→21:27)
[2019-04-28] MEDS ORDERED: MELATONIN 3 MG TABLET PO PRN (17:29)
[2019-04-28] MEDS: PANTOPRAZOLE 40 MG TABLET PO SCH (19:08)
[2019-04-28] MEDS ORDERED: ROSUVASTATIN 20 MG TABLET PO SCH (21:00)
[2019-04-28] MEDS: GABAPENTIN 300 MG CAPSULE PO SCH (21:27)
[2019-04-28] MEDS: metroNIDAZOLE 500 MG TABLET PO SCH (21:27)
[2019-04-29] MEDS: INSULIN REGULAR 100 UNIT/ML SUBCUT SCH ×3 (00:38→12:32)
[2019-04-29] MEDS: SODIUM CHLORIDE 0.9% 1,000 ML IV SCH (01:18)
[2019-04-29] MEDS: AZTREONAM 1,000 MG in SYRINGE 1 EACH IV SCH ×3 (01:18→16:59)
[2019-04-29 05:06] LABS: Basophils # 0.1 10*3/uL (0.0-0.2); Basophils % 0.9 % (0.0-0.8); Eosinophils # 0.4 10*3/uL (0.0-0.87); Eosinophils % 3.8 % (0.00-10.9); Hematocrit 40.4 VOL% (35.7-47.0); Hemoglobin 12.3 GM/DL (12.0-16.0); Immature Granulocytes % 0.6 %; Immature Granulocytes Absolute 0.06 #; Lymphocytes # 1.3 10*3/uL (1.4-4.0); Lymphocytes % 13.1 % (21.3-54.2); Mean Corpuscular HGB Conc 30.4 GM/DL (32-36); Mean Corpuscular Volume 88.8 FL (87-102); Monocytes % 8.1 % (1.7-12.7); Neutrophils % 73.5 % (38.7-73.9); Platelet Count 140 T/CUMM (130-400); Red Blood Count 4.55 MC/CUMM (3.8-5.5); Red Cell Distribution Width 14.9 % (9.3-17.3); White Blood Count 10.3 T/CUMM (4-12)
[2019-04-29 05:18] LABS: Calcium 7.9 MG/DL (8.5-10.1); Osmolality,Calculated 297.1 MOS/KG (273-304)
[2019-04-29] MEDS: PANTOPRAZOLE 40 MG TABLET PO SCH (06:13)
[2019-04-29] MEDS ORDERED: LEVOTHYROXINE 150 MCG TABLET PO SCH (07:00)
[2019-04-29] MEDS ORDERED: VIT D3 FOLIC ACID B2 B6 B12 PO SCH (09:00)
[2019-04-29] MEDS ORDERED: OMEGA 3 ACID ETHYL ESTERS 1 GM CAPSULE PO SCH (09:00)
[2019-04-29] MEDS: metroNIDAZOLE 500 MG TABLET PO SCH ×2 (09:08→14:41)
[2019-04-29] MEDS: DULoxetine 30 MG CAPSULE PO SCH (09:08)
[2019-04-29] MEDS: GLIMEPIRIDE 4 MG TABLET PO SCH (09:08)
[2019-04-29] MEDS: METOPROLOL TARTRATE 25 MG TABLET PO SCH (09:08)
[2019-04-29] MEDS: GABAPENTIN 300 MG CAPSULE PO SCH (09:08)
[2019-04-29 17:56] VITALS: BP 121/68
== END 2019-04-29 17:40 | disposition home or self-care (01) | DRG 378 ==
LOC: N.EDINP 04:02 → N.ED 04:02 → N.5E 08:34
PROVIDERS: ADMIT Internal Medicine; ATTEND Internal Medicine

== ENCOUNTER 2020-05-31 19:43 | Inpatient (IN) ==
[2020-05-31 21:25] LABS: Basophils # 0.1 10*3/uL (0.0-0.2); Basophils % 0.3 % (0.0-0.8); Eosinophils # 0.2 10*3/uL (0.0-0.87); Hematocrit 43.1 VOL% (35.7-47.0); Hemoglobin 13.8 GM/DL (12.0-16.0); Immature Granulocytes Absolute 0.18 #; Lymphocytes # 1.1 10*3/uL (1.4-4.0); Lymphocytes % 6.1 % (21.3-54.2); Mean Corpuscular Volume 84.8 FL (87-102); Monocytes % 7.5 % (1.7-12.7); Neutrophils % 84.1 % (38.7-73.9); Platelet Count 231 T/CUMM (130-400); Red Blood Count 5.08 MC/CUMM (3.8-5.5); Red Cell Distribution Width 14.6 % (9.3-17.3); White Blood Count 18.4 T/CUMM (4-12)
[2020-05-31 21:44] LABS: Alanine Aminotransferase 17 U/L (13-56); Albumin 2.9 G/DL (3.4-5.0); Alkaline Phosphatase 115 U/L (45-117); Aspartate Amino Transferase 16 U/L (0-37); Bilirubin,Total < 0.39 MG/DL (0.2-1.0); Blood Urea Nitrogen 59 MG/DL (7-18); Calcium 9.8 MG/DL (8.5-10.1); Estimated Glom Filtration Rate 20 ML/MIN; Glucose 143 MG/DL (74-106); Osmolality,Calculated 280.7 MOS/KG (273-304); Total Protein 8.8 G/DL (6.4-8.3)
[2020-05-31] MEDS ORDERED: VANCOMYCIN INJ 1,000 MG in SODIUM CHLORIDE 0.9% 250 ML IV ONE (23:30)
[2020-05-31] MEDS ORDERED: DEXTROSE 50% 25 GM/50 ML VIAL IV PRN (23:44)
[2020-05-31] MEDS ORDERED: ONDANSETRON 4 MG/2 ML VIAL IV PRN (23:44)
[2020-05-31] MEDS ORDERED: GLUCAGON 1 MG VIAL IM PRN (23:44)
[2020-06-01] MEDS: SODIUM CHLORIDE 0.9% 1,000 ML IV SCH ×2 (01:25→12:39)
[2020-06-01] MEDS: INSULIN REGULAR 100 UNIT/ML SUBCUT SCH ×5 (01:26→23:18)
[2020-06-01] MEDS ORDERED: NITROGLYCERIN SL 0.4 MG TABLET SL PRN (08:26)
[2020-06-01] MEDS: GABAPENTIN 300 MG CAPSULE PO SCH ×2 (09:16→20:36)
[2020-06-01] MEDS: PANTOPRAZOLE 40 MG TABLET PO SCH (09:17)
[2020-06-01] MEDS: FUROSEMIDE 40 MG TABLET PO SCH ×2 (09:21→20:37)
[2020-06-01] MEDS: DULoxetine 30 MG CAPSULE PO SCH ×2 (09:37→20:36)
[2020-06-01] MEDS: amLODIPine 2.5 MG TABLET PO SCH (09:38)
[2020-06-01] MEDS: LEVOTHYROXINE 150 MCG TABLET PO SCH (09:38)
[2020-06-01] MEDS ORDERED: LIDOCAINE 1% 20 ML VIAL ONE (09:43)
[2020-06-01] MEDS ORDERED: BUPIVACAINE MPF 0.25% 30 ML VIAL ONE (09:43)
[2020-06-01] MEDS ORDERED: propofoL 200 MG/20 ML VIAL IV ONE (10:50)
[2020-06-01] MEDS ORDERED: CALCIUM CHLORIDE 1,000 MG/10 ML VIAL IV ONE (10:50)
[2020-06-01] MEDS ORDERED: ALBUMIN 5% 12.5 GM/250 ML VIAL IV ONE (10:50)
[2020-06-01] MEDS ORDERED: SEVOFLURANE 1 UNIT/15 MINUTE INH ONE (10:50)
[2020-06-01] MEDS ORDERED: LIDOCAINE 2% 5 ML VIAL ONE (10:50)
[2020-06-01] MEDS ORDERED: fentaNYL 100 MCG/2 ML VIAL ONE (10:51)
[2020-06-01] MEDS ORDERED: ONDANSETRON 4 MG/2 ML VIAL ONE (10:51)
[2020-06-01] MEDS ORDERED: PHENYLEPHRINE 1 MG/10 ML SYRINGE IV ONE (10:51)
[2020-06-01] MEDS ORDERED: VANCOMYCIN INJ 1,000 MG in SODIUM CHLORIDE 0.9% 250 ML IV PRN (11:45)
[2020-06-01] MEDS: OMEGA 3 ACID ETHYL ESTERS 1 GM CAPSULE PO SCH (14:00)
[2020-06-01] MEDS ORDERED: MORPHINE 4 MG/1 ML VIAL IV PRN (14:23)
[2020-06-01] MEDS: CEFEPIME 1,000 MG in SODIUM CHLORIDE 0.9% 100 ML IV SCH (14:35)
[2020-06-01] MEDS: MORPHINE 4 MG/1 ML VIAL IV PRN ×2 (20:37→23:50)
[2020-06-01] MEDS ORDERED: ROSUVASTATIN 20 MG TABLET PO SCH (21:00)
[2020-06-02] MEDS: SODIUM CHLORIDE 0.9% 1,000 ML IV SCH ×2 (00:58→14:21)
[2020-06-02] MEDS: CEFEPIME 1,000 MG in SODIUM CHLORIDE 0.9% 100 ML IV SCH ×2 (01:02→14:21)
[2020-06-02] MEDS: MORPHINE 4 MG/1 ML VIAL IV PRN (02:39)
[2020-06-02 05:34] LABS: Basophils # 0.1 10*3/uL (0.0-0.2); Eosinophils # 0.3 10*3/uL (0.0-0.87); Eosinophils % 3.5 % (0.00-10.9); Hematocrit 35.1 VOL% (35.7-47.0); Hemoglobin 11.4 GM/DL (12.0-16.0); Immature Granulocytes % 0.8 %; Immature Granulocytes Absolute 0.07 #; Lymphocytes % 11.6 % (21.3-54.2); Mean Corpuscular HGB Conc 32.5 GM/DL (32-36); Mean Corpuscular Volume 83.8 FL (87-102); Mean Platelet Volume 10.3 FL (9.6-12.0); Monocytes % 12.3 % (1.7-12.7); Neutrophils % 70.8 % (38.7-73.9); Platelet Count 171 T/CUMM (130-400); Red Blood Count 4.19 MC/CUMM (3.8-5.5); Red Cell Distribution Width 14.8 % (9.3-17.3); White Blood Count 8.3 T/CUMM (4-12)
[2020-06-02 05:58] LABS: Calcium 8.3 MG/DL (8.5-10.1); Osmolality,Calculated 297.8 MOS/KG (273-304)
[2020-06-02 06:00] LABS: Albumin 2.4 G/DL (3.4-5.0); Bilirubin,Total 1.2 MG/DL (0.2-1.0); Calcium 8.2 MG/DL (8.5-10.1); Osmolality,Calculated 298.7 MOS/KG (273-304); Total Protein 6.7 G/DL (6.4-8.3)
[2020-06-02] MEDS: INSULIN REGULAR 100 UNIT/ML SUBCUT SCH ×3 (06:15→18:37)
[2020-06-02] MEDS: LEVOTHYROXINE 150 MCG TABLET PO SCH (06:15)
[2020-06-02] MEDS: OMEGA 3 ACID ETHYL ESTERS 1 GM CAPSULE PO SCH (08:03)
[2020-06-02] MEDS: DULoxetine 30 MG CAPSULE PO SCH ×2 (08:03→21:26)
[2020-06-02] MEDS: GABAPENTIN 300 MG CAPSULE PO SCH ×2 (08:03→21:26)
[2020-06-02] MEDS: amLODIPine 2.5 MG TABLET PO SCH (08:03)
[2020-06-02] MEDS: FUROSEMIDE 40 MG TABLET PO SCH ×2 (08:04→21:25)
[2020-06-02] MEDS: ASPIRIN CHEW 81 MG TABLET PO SCH (08:04)
[2020-06-02] MEDS: PANTOPRAZOLE 40 MG TABLET PO SCH (08:04)
[2020-06-03] MEDS: INSULIN REGULAR 100 UNIT/ML SUBCUT SCH ×4 (00:23→18:20)
[2020-06-03] MEDS: CEFEPIME 1,000 MG in SODIUM CHLORIDE 0.9% 100 ML IV SCH (02:13)
[2020-06-03] MEDS: SODIUM CHLORIDE 0.9% 1,000 ML IV SCH ×2 (04:25→14:14)
[2020-06-03] MEDS: LEVOTHYROXINE 150 MCG TABLET PO SCH (06:15)
[2020-06-03 07:59] LABS: Basophils # 0.1 10*3/uL (0.0-0.2); Basophils % 0.9 % (0.0-0.8); Eosinophils # 0.4 10*3/uL (0.0-0.87); Eosinophils % 4.9 % (0.00-10.9); Hematocrit 39.9 VOL% (35.7-47.0); Hemoglobin 12.3 GM/DL (12.0-16.0); Immature Granulocytes % 0.9 %; Immature Granulocytes Absolute 0.08 #; Lymphocytes % 11.2 % (21.3-54.2); Mean Corpuscular HGB Conc 30.8 GM/DL (32-36); Mean Corpuscular Volume 87.5 FL (87-102); Mean Platelet Volume 10.5 FL (9.6-12.0); Monocytes % 9.8 % (1.7-12.7); Neutrophils % 72.3 % (38.7-73.9); Platelet Count 201 T/CUMM (130-400); Red Blood Count 4.56 MC/CUMM (3.8-5.5); Red Cell Distribution Width 14.9 % (9.3-17.3); White Blood Count 8.8 T/CUMM (4-12)
[2020-06-03 08:21] LABS: Calcium 8.6 MG/DL (8.5-10.1); Osmolality,Calculated 298.3 MOS/KG (273-304)
[2020-06-03] MEDS: DULoxetine 30 MG CAPSULE PO SCH (09:22)
[2020-06-03] MEDS: amLODIPine 2.5 MG TABLET PO SCH (09:22)
[2020-06-03] MEDS: OMEGA 3 ACID ETHYL ESTERS 1 GM CAPSULE PO SCH (09:22)
[2020-06-03] MEDS: FUROSEMIDE 40 MG TABLET PO SCH ×2 (09:23→21:06)
[2020-06-03] MEDS: PANTOPRAZOLE 40 MG TABLET PO SCH (09:23)
[2020-06-03] MEDS: GABAPENTIN 300 MG CAPSULE PO SCH ×2 (09:23→21:06)
[2020-06-03] MEDS ORDERED: MAGNESIUM HYDROXIDE SUSP 30 ML UDCUP PO PRN (10:28)
[2020-06-03] MEDS: POLYETHYLENE GLYCOL POWDER 17 GM PACK PO SCH (13:48)
[2020-06-03] MEDS: LINEZOLID 600 MG TABLET PO SCH ×2 (13:48→21:06)
[2020-06-03] MEDS: DOCUSATE SODIUM 100 MG CAPSULE PO SCH ×2 (13:48→21:06)
[2020-06-03] MEDS ORDERED: INSULIN GLARGINE 100 UNIT/ML SUBCUT SCH (21:00)
[2020-06-04] MEDS: INSULIN REGULAR 100 UNIT/ML SUBCUT SCH ×3 (01:35→13:55)
[2020-06-04] MEDS: SODIUM CHLORIDE 0.9% 1,000 ML IV SCH ×2 (05:04→15:56)
[2020-06-04 06:22] LABS: Basophils # 0.1 10*3/uL (0.0-0.2); Basophils % 1.3 % (0.0-0.8); Eosinophils # 0.4 10*3/uL (0.0-0.87); Eosinophils % 4.5 % (0.00-10.9); Hemoglobin 12.2 GM/DL (12.0-16.0); Immature Granulocytes % 1.6 %; Immature Granulocytes Absolute 0.14 #; Lymphocytes # 1.2 10*3/uL (1.4-4.0); Lymphocytes % 13.4 % (21.3-54.2); Mean Corpuscular HGB Conc 31.3 GM/DL (32-36); Mean Corpuscular Volume 85.2 FL (87-102); Mean Platelet Volume 10.5 FL (9.6-12.0); Monocytes % 10.8 % (1.7-12.7); Neutrophils % 68.4 % (38.7-73.9); Platelet Count 222 T/CUMM (130-400); Red Blood Count 4.58 MC/CUMM (3.8-5.5); Red Cell Distribution Width 14.8 % (9.3-17.3); White Blood Count 8.9 T/CUMM (4-12)
[2020-06-04 06:33] LABS: Calcium 8.6 MG/DL (8.5-10.1); Osmolality,Calculated 287.8 MOS/KG (273-304)
[2020-06-04] MEDS: LEVOTHYROXINE 150 MCG TABLET PO SCH (06:53)
[2020-06-04] MEDS: ASPIRIN CHEW 81 MG TABLET PO SCH (08:56)
[2020-06-04] MEDS: FUROSEMIDE 40 MG TABLET PO SCH (08:56)
[2020-06-04] MEDS: OMEGA 3 ACID ETHYL ESTERS 1 GM CAPSULE PO SCH (08:57)
[2020-06-04] MEDS: GABAPENTIN 300 MG CAPSULE PO SCH (08:57)
[2020-06-04] MEDS: PANTOPRAZOLE 40 MG TABLET PO SCH (08:57)
[2020-06-04] MEDS: LINEZOLID 600 MG TABLET PO SCH (08:57)
[2020-06-04] MEDS: DOCUSATE SODIUM 100 MG CAPSULE PO SCH (08:58)
[2020-06-04] MEDS: amLODIPine 2.5 MG TABLET PO SCH (08:58)
[2020-06-04] MEDS: POLYETHYLENE GLYCOL POWDER 17 GM PACK PO SCH (08:58)
[2020-06-04 12:02] VITALS: BP 114/58
== END 2020-06-04 15:50 | disposition swing bed (61) | DRG 617 ==
LOC: N.ED 19:43 → N.EDINP 23:57 → N.TELEN 06-01 13:52
PROVIDERS: ADMIT Hospitalist; ATTEND Hospitalist

== ENCOUNTER 2021-01-23 10:52 | Observation (INO) ==
[2021-01-23 11:17] LABS: Basophils # 0.1 10*3/uL (0.0-0.2); Basophils % 0.5 % (0.0-0.8); Eosinophils # 0.1 10*3/uL (0.0-0.87); Eosinophils % 1.2 % (0.00-10.9); Hemoglobin 14.1 GM/DL (12.0-16.0); Immature Granulocytes % 1.2 %; Immature Granulocytes Absolute 0.14 #; Lymphocytes # 0.7 10*3/uL (1.4-4.0); Lymphocytes % 6.6 % (21.3-54.2); Mean Corpuscular Volume 87.6 FL (87-102); Mean Platelet Volume 10.7 FL (9.6-12.0); Neutrophils % 84.5 % (38.7-73.9); Platelet Count 159 T/CUMM (130-400); Red Blood Count 5.02 MC/CUMM (3.8-5.5); White Blood Count 11.3 T/CUMM (4-12)
[2021-01-23 11:26] LABS: INR 1.1; PT Patient Result 11.3 SECS (9.8-11.9); Partial Thromboplastin Time 24.3 SECS (23.9-33.8)
[2021-01-23] MEDS ORDERED: SODIUM CHLORIDE 0.9% 1,000 ML IV STA (11:31)
[2021-01-23 11:39] LABS: Alanine Aminotransferase 20 U/L (13-56); Albumin 3.4 G/DL (3.4-5.0); Alkaline Phosphatase 91 U/L (45-117); Aspartate Amino Transferase 13 U/L (0-37); Bilirubin,Total < 0.39 MG/DL (0.2-1.0); Blood Urea Nitrogen 91 MG/DL (7-18); Calcium 8.3 MG/DL (8.5-10.1); Carbon Dioxide 27 MMOL/L (21-32); Estimated Glom Filtration Rate 18 ML/MIN; Glucose 374 MG/DL (74-106); Lactic Acid 1.2 MMOL/L (0.4-2.0); Osmolality,Calculated 319.5 MOS/KG (273-304); Potassium 3.8 MMOL/L (3.5-5.1); Sodium 139 MMOL/L (136-145); Total Protein 7.7 G/DL (6.4-8.2)
[2021-01-23 11:50] LABS: Amorphous Crystals,Urine Few /HPF (Few); Bacteria,Urine Many /HPF (Few); Bilirubin,Urine Negative (Negative); Blood, Urine Moderate mg/dL (Negative); Glucose,Urine (UA) >=500 mg/dL (Negative); Ketones,Urine Negative (Negative); Mucus,Urine Occasional /LPF (Occasional); Nitrite,Urine Positive (Negative); Protein,Urine 30 MG/DL; RBC,Urine 66 /HPF (0-4); Squamous Epithelial Cell,Urine Occasional /HPF (0-10); Urine Appearance Slightly Hazy (Clear); Urine Color Yellow (Yellow); Urine Specific Gravity 1.008 (1.001-1.035); Urine Urobilinogen < 2.0 EU/DL (0.2-1.0); WBC,Urine 31 /HPF (0-6)
[2021-01-23] MEDS ORDERED: cefTRIAXone 1,000 MG in SODIUM CHLORIDE 0.9% 100 ML IV STA (11:54)
[2021-01-23] MEDS ORDERED: SODIUM CHLORIDE 0.9% 100 ML IV ONE (11:56)
[2021-01-23] MEDS ORDERED: cefTRIAXone 1,000 MG VIAL ONE (11:56)
[2021-01-23] MEDS ORDERED: ONDANSETRON 4 MG/2 ML VIAL ONE (12:03)
[2021-01-23] MEDS ORDERED: ONDANSETRON 4 MG/2 ML VIAL IV STA (12:07)
[2021-01-23] MEDS ORDERED: ACETAMINOPHEN 325 MG TABLET PO PRN (13:28)
[2021-01-23] MEDS ORDERED: hydrALAZINE 20 MG/1 ML VIAL IV PRN (13:28)
[2021-01-23] MEDS ORDERED: DEXTROSE 50% 25 GM/50 ML VIAL IV PRN ×2 (13:28)
[2021-01-23] MEDS ORDERED: GLUCAGON 1 MG VIAL IM PRN (13:28)
[2021-01-23] MEDS ORDERED: ONDANSETRON 4 MG/2 ML VIAL IV PRN (13:28)
[2021-01-23] MEDS ORDERED: DOCUSATE SODIUM 100 MG CAPSULE PO PRN (13:28)
[2021-01-23] MEDS ORDERED: POLYETHYLENE GLYCOL POWDER 17 GM PACK PO PRN (13:36)
[2021-01-23] MEDS ORDERED: NITROGLYCERIN SL 0.4 MG TABLET SL PRN (13:36)
[2021-01-23] MEDS: FUROSEMIDE 40 MG TABLET PO SCH (15:32)
[2021-01-23] MEDS: ENOXAPARIN 30 MG/0.3 ML SYRINGE SUBCUT SCH (15:32)
[2021-01-23] MEDS: SODIUM CHLOR 0.9% KCL 20 MEQ 20 MEQ/1,000 ML BAG IV SCH ×2 (15:41→23:50)
[2021-01-23] MEDS: INSULIN LISPRO 100 UNIT/ML SUBCUT SCH ×2 (15:52→22:07)
[2021-01-23] MEDS ORDERED: ROSUVASTATIN 20 MG TABLET PO SCH (21:00)
[2021-01-23] MEDS: DULoxetine 30 MG CAPSULE PO SCH (22:06)
[2021-01-23] MEDS: METOPROLOL TARTRATE 25 MG TABLET PO SCH (22:07)
[2021-01-24] MEDS ORDERED: LEVOTHYROXINE 150 MCG TABLET PO SCH (06:00)
[2021-01-24 06:12] LABS: Basophils # 0.1 10*3/uL (0.0-0.2); Basophils % 0.5 % (0.0-0.8); Eosinophils # 0.1 10*3/uL (0.0-0.87); Eosinophils % 0.9 % (0.00-10.9); Hematocrit 46.7 VOL% (35.7-47.0); Hemoglobin 14.8 GM/DL (12.0-16.0); Immature Granulocytes % 0.7 %; Immature Granulocytes Absolute 0.06 #; Lymphocytes # 0.9 10*3/uL (1.4-4.0); Lymphocytes % 9.3 % (21.3-54.2); Mean Corpuscular HGB Conc 31.7 GM/DL (32-36); Mean Corpuscular Volume 88.6 FL (87-102); Mean Platelet Volume 10.8 FL (9.6-12.0); Monocytes % 7.5 % (1.7-12.7); Neutrophils % 81.1 % (38.7-73.9); Platelet Count 177 T/CUMM (130-400); Red Blood Count 5.27 MC/CUMM (3.8-5.5); Red Cell Distribution Width 14.2 % (9.3-17.3); White Blood Count 9.2 T/CUMM (4-12)
[2021-01-24 06:49] LABS: Calcium 8.9 MG/DL (8.5-10.1); Osmolality,Calculated 308.7 MOS/KG (273-304); Potassium 4.1 MMOL/L (3.5-5.1); Thyroid Stimulating Hormone 0.293 uIU/ml (0.358-3.74)
[2021-01-24] MEDS ORDERED: FERROUS SULFATE 325 MG TABLET PO SCH (09:00)
[2021-01-24] MEDS ORDERED: PANTOPRAZOLE 40 MG TABLET PO SCH (09:00)
[2021-01-24] MEDS ORDERED: ASPIRIN CHEW 81 MG TABLET PO SCH (09:00)
[2021-01-24] MEDS: INSULIN LISPRO 100 UNIT/ML SUBCUT SCH ×2 (09:00→11:58)
[2021-01-24] MEDS ORDERED: amLODIPine 2.5 MG TABLET PO SCH (09:00)
[2021-01-24] MEDS ORDERED: OMEGA 3 ACID ETHYL ESTERS 1 GM CAPSULE PO SCH (09:00)
[2021-01-24] MEDS: METOPROLOL TARTRATE 25 MG TABLET PO SCH (09:01)
[2021-01-24] MEDS: DULoxetine 30 MG CAPSULE PO SCH (09:01)
[2021-01-24] MEDS: FUROSEMIDE 40 MG TABLET PO SCH (09:01)
[2021-01-24] MEDS: SODIUM CHLOR 0.9% KCL 20 MEQ 20 MEQ/1,000 ML BAG IV SCH (09:07)
[2021-01-24] MEDS: ENOXAPARIN 30 MG/0.3 ML SYRINGE SUBCUT SCH (14:09)
[2021-01-24 16:07] VITALS: BP 123/57
== END 2021-01-24 15:55 | disposition home or self-care (01) ==
LOC: EDBD → EDUNIT# → N.ED 10:52 → N.EDINP 10:52 → SUATTDRO 13:28 → N.5E 14:31
PROVIDERS: ADMIT Phlebology; ATTEND Internal Medicine

== ENCOUNTER 2021-01-29 08:49 | Inpatient (IN) ==
[2021-01-29] MEDS ORDERED: SODIUM CHLORIDE 0.9% 1,000 ML IV STA (09:41)
[2021-01-29 10:08] LABS: Basophils # 0.1 10*3/uL (0.0-0.2); Basophils % 0.7 % (0.0-0.8); Eosinophils # 0.3 10*3/uL (0.0-0.87); Hematocrit 49.4 VOL% (35.7-47.0); Hemoglobin 15.7 GM/DL (12.0-16.0); Immature Granulocytes % 1.4 %; Immature Granulocytes Absolute 0.22 #; Lymphocytes # 1.7 10*3/uL (1.4-4.0); Lymphocytes % 10.6 % (21.3-54.2); Mean Corpuscular HGB Conc 31.8 GM/DL (32-36); Mean Corpuscular Volume 88.7 FL (87-102); Mean Platelet Volume 10.5 FL (9.6-12.0); Monocytes % 6.5 % (1.7-12.7); Neutrophils % 78.8 % (38.7-73.9); Platelet Count 187 T/CUMM (130-400); Red Blood Count 5.57 MC/CUMM (3.8-5.5); Red Cell Distribution Width 14.2 % (9.3-17.3); White Blood Count 16.2 T/CUMM (4-12)
[2021-01-29 10:27] LABS: Alanine Aminotransferase 27 U/L (13-56); Albumin 3.7 G/DL (3.4-5.0); Alkaline Phosphatase 98 U/L (45-117); Amylase 43 U/L (25-115); Aspartate Amino Transferase 19 U/L (0-37); Bilirubin,Total < 0.39 MG/DL (0.2-1.0); Blood Urea Nitrogen 52 MG/DL (7-18); Calcium 9.7 MG/DL (8.5-10.1); Carbon Dioxide 26 MMOL/L (21-32); Estimated Glom Filtration Rate 33 ML/MIN; Glucose 196 MG/DL (74-106); Osmolality,Calculated 297.4 MOS/KG (273-304); Potassium 4.6 MMOL/L (3.5-5.1); Sodium 140 MMOL/L (136-145); Total Protein 8.6 G/DL (6.4-8.2)
[2021-01-29 10:28] LABS: Bacteria,Urine Occasional /HPF (Few); Bilirubin,Urine Negative (Negative); Blood, Urine Moderate mg/dL (Negative); Glucose,Urine (UA) 50 mg/dL (Negative); Ketones,Urine Negative (Negative); Mucus,Urine Occasional /LPF (Occasional); Nitrite,Urine Negative (Negative); Protein,Urine 100 MG/DL; RBC,Urine 129 /HPF (0-4); Urine Appearance CLEAR (Clear); Urine Color Yellow (Yellow); Urine Specific Gravity 1.014 (1.001-1.035); Urine Urobilinogen < 2.0 EU/DL (0.2-1.0); WBC,Urine 4 /HPF (0-6)
[2021-01-29] MEDS ORDERED: MORPHINE 4 MG/1 ML VIAL IV ONE (11:44)
[2021-01-29] MEDS ORDERED: ONDANSETRON 4 MG/2 ML VIAL IV STA (11:44)
[2021-01-29] MEDS ORDERED: MAGNESIUM CITRATE 300 ML BOTTLE PO ONE (13:42)
[2021-01-29] MEDS ORDERED: DEXTROSE 50% 25 GM/50 ML VIAL IV PRN (13:42)
[2021-01-29] MEDS ORDERED: hydrALAZINE 20 MG/1 ML VIAL IV PRN (13:42)
[2021-01-29] MEDS ORDERED: GLUCAGON 1 MG VIAL IM PRN (13:42)
[2021-01-29] MEDS ORDERED: ACETAMINOPHEN 325 MG TABLET PO PRN (13:42)
[2021-01-29] MEDS ORDERED: ONDANSETRON 4 MG/2 ML VIAL IV PRN (13:42)
[2021-01-29] MEDS ORDERED: cefTRIAXone 1,000 MG in SODIUM CHLORIDE 0.9% 100 ML IV SCH (14:00)
[2021-01-29 14:09] LABS: Free T4 (Free Thyroxine) 1.14 NG/DL (0.76-1.46)
[2021-01-29] MEDS: ENOXAPARIN 30 MG/0.3 ML SYRINGE SUBCUT SCH (14:46)
[2021-01-29] MEDS: metroNIDAZOLE INJ 500 MG in PREMIX 1 EACH IV SCH ×2 (14:47→21:09)
[2021-01-29] MEDS: INSULIN LISPRO 100 UNIT/ML SUBCUT SCH ×2 (15:43→22:54)
[2021-01-29] MEDS: METOPROLOL TARTRATE 25 MG TABLET PO SCH (21:07)
[2021-01-29] MEDS: ROSUVASTATIN 20 MG TABLET PO SCH (21:07)
[2021-01-29] MEDS: DOCUSATE SODIUM 100 MG CAPSULE PO SCH (21:07)
[2021-01-29] MEDS: INSULIN GLARGINE 100 UNIT/ML SUBCUT SCH (22:54)
[2021-01-30 05:23] LABS: Basophils # 0.1 10*3/uL (0.0-0.2); Basophils % 0.7 % (0.0-0.8); Eosinophils # 0.3 10*3/uL (0.0-0.87); Eosinophils % 1.9 % (0.00-10.9); Hematocrit 48.8 VOL% (35.7-47.0); Immature Granulocytes % 0.9 %; Immature Granulocytes Absolute 0.16 #; Lymphocytes # 1.6 10*3/uL (1.4-4.0); Lymphocytes % 9.1 % (21.3-54.2); Mean Corpuscular HGB Conc 30.7 GM/DL (32-36); Mean Corpuscular Volume 90.5 FL (87-102); Mean Platelet Volume 10.8 FL (9.6-12.0); Monocytes % 7.1 % (1.7-12.7); Neutrophils % 80.3 % (38.7-73.9); Platelet Count 205 T/CUMM (130-400); Red Blood Count 5.39 MC/CUMM (3.8-5.5); Red Cell Distribution Width 14.4 % (9.3-17.3); White Blood Count 17.2 T/CUMM (4-12)
[2021-01-30 05:52] LABS: Calcium 9.4 MG/DL (8.5-10.1); Potassium 4.7 MMOL/L (3.5-5.1)
[2021-01-30] MEDS: LEVOTHYROXINE 150 MCG TABLET PO SCH (06:04)
[2021-01-30] MEDS: metroNIDAZOLE INJ 500 MG in PREMIX 1 EACH IV SCH ×3 (06:04→21:40)
[2021-01-30] MEDS: INSULIN LISPRO 100 UNIT/ML SUBCUT SCH ×4 (07:23→20:47)
[2021-01-30] MEDS: DULoxetine 30 MG CAPSULE PO SCH (09:14)
[2021-01-30] MEDS: METOPROLOL TARTRATE 25 MG TABLET PO SCH ×2 (09:14→20:47)
[2021-01-30] MEDS: amLODIPine 2.5 MG TABLET PO SCH (09:14)
[2021-01-30] MEDS: FERROUS SULFATE 325 MG TABLET PO SCH (09:14)
[2021-01-30] MEDS: CHOLECALCIFEROL 1,000 UNIT TABLET PO SCH (09:15)
[2021-01-30] MEDS: DOCUSATE SODIUM 100 MG CAPSULE PO SCH ×2 (09:15→20:47)
[2021-01-30] MEDS: INSULIN GLARGINE 100 UNIT/ML SUBCUT SCH ×2 (09:15→23:30)
[2021-01-30] MEDS: CEFEPIME 1,000 MG in SODIUM CHLORIDE 0.9% 100 ML IV SCH ×2 (10:12→16:36)
[2021-01-30] MEDS: ENOXAPARIN 30 MG/0.3 ML SYRINGE SUBCUT SCH (14:13)
[2021-01-30] MEDS: ROSUVASTATIN 20 MG TABLET PO SCH (20:47)
[2021-01-31] MEDS: CEFEPIME 1,000 MG in SODIUM CHLORIDE 0.9% 100 ML IV SCH ×3 (00:44→16:42)
[2021-01-31] MEDS: LEVOTHYROXINE 150 MCG TABLET PO SCH (05:07)
[2021-01-31 05:50] LABS: Basophils # 0.1 10*3/uL (0.0-0.2); Basophils % 0.5 % (0.0-0.8); Eosinophils # 0.3 10*3/uL (0.0-0.87); Eosinophils % 2.1 % (0.00-10.9); Hematocrit 42.4 VOL% (35.7-47.0); Hemoglobin 13.4 GM/DL (12.0-16.0); Immature Granulocytes % 0.8 %; Immature Granulocytes Absolute 0.12 #; Lymphocytes # 1.3 10*3/uL (1.4-4.0); Lymphocytes % 8.4 % (21.3-54.2); Mean Corpuscular HGB Conc 31.6 GM/DL (32-36); Mean Corpuscular Volume 89.6 FL (87-102); Mean Platelet Volume 10.6 FL (9.6-12.0); Monocytes % 8.1 % (1.7-12.7); Neutrophils % 80.1 % (38.7-73.9); Platelet Count 163 T/CUMM (130-400); Red Blood Count 4.73 MC/CUMM (3.8-5.5); Red Cell Distribution Width 14.4 % (9.3-17.3); White Blood Count 14.9 T/CUMM (4-12)
[2021-01-31] MEDS: metroNIDAZOLE INJ 500 MG in PREMIX 1 EACH IV SCH ×2 (06:07→16:32)
[2021-01-31 06:49] LABS: Osmolality,Calculated 289.4 MOS/KG (273-304); Potassium 4.8 MMOL/L (3.5-5.1)
[2021-01-31] MEDS: INSULIN LISPRO 100 UNIT/ML SUBCUT SCH ×3 (07:19→16:33)
[2021-01-31] MEDS: INSULIN GLARGINE 100 UNIT/ML SUBCUT SCH (09:18)
[2021-01-31] MEDS: CHOLECALCIFEROL 1,000 UNIT TABLET PO SCH (09:53)
[2021-01-31] MEDS: FERROUS SULFATE 325 MG TABLET PO SCH (09:53)
[2021-01-31] MEDS: DULoxetine 30 MG CAPSULE PO SCH (09:53)
[2021-01-31] MEDS: METOPROLOL TARTRATE 25 MG TABLET PO SCH (09:53)
[2021-01-31] MEDS: amLODIPine 2.5 MG TABLET PO SCH (09:53)
[2021-01-31] MEDS: DOCUSATE SODIUM 100 MG CAPSULE PO SCH (09:53)
[2021-01-31 11:23] VITALS: BP 151/53
[2021-01-31] MEDS: ENOXAPARIN 30 MG/0.3 ML SYRINGE SUBCUT SCH (14:30)
[2021-01-31] MEDS ORDERED: ASPIRIN CHEW 81 MG TABLET PO SCH (15:11)
== END 2021-01-31 17:50 | disposition home health service (06) | DRG 392 ==
LOC: EDUNIT# → EDBD → N.ED 08:49 → SUATTDRO 12:28 → N.EDINP 12:28 → N.3E 13:14
PROVIDERS: ADMIT Internal Medicine; ATTEND Internal Medicine